=== PATIENT | female | born 1935 | race Two or more races ===

== ENCOUNTER 2024-07-04 16:14 | Emergency (ER) | payer OTHER ==
[~2024-07-04] VITALS: Ht 170.2 cm; Wt 74.8 kg
[~2024-07-04 16:14] MED LIST: ASPIR 8181 MG
[2024-07-04] MEDS ORDERED: FOSAMAX70 MG PO (16:47)
[2024-07-04] MEDS ORDERED: CANDESARTAN CIL32 MG PO (16:47)
[2024-07-04] MEDS ORDERED: SYNTHROID50 MCG PO (16:47)
[2024-07-04] MEDS ORDERED: NORVASC5 MG PO (16:47)
[2024-07-04] MEDS ORDERED: ECOTRIN81 MG (16:48)
[2024-07-04] MEDS ORDERED: BENZONATATE 100 MG CAPSULE PO ONE (17:30)
[2024-07-04] MEDS ORDERED: ACETAMINOPHEN 500 MG GEL..CAP PO ONE (17:30)
[2024-07-04 18:26] LABS: HEMATOCRIT 39.9 % (36.0-45.00); HEMOGLOBIN 13.5 g/dL (12.0-15.00); MEAN CELL VOLUME 99.8 fL (80.00-100.00); MEAN CORPUSCULAR HEMOGLOBIN 33.8 pg (27.00-32.0); MEAN CORPUSCULAR HGB CONC 33.9 g/dl (32.0-36.0); PLATELET COUNT 172 K/uL (150-450); RED BLOOD COUNT 3.99 M/uL (4.00-6.00); RED CELL DISTRIBUTION WIDTH 13.3 % (11.5-14.5)
== END 2024-07-04 20:22 | disposition home or self-care (01) ==
LOC: ER 16:16
PROVIDERS: General Practice
DX: R53.81 Other malaise (principal); J06.9 Acute upper respiratory infection, unspecified; Z20.822 Contact with and (suspected) exposure to COVID-19

== ENCOUNTER 2024-12-12 08:55 | Emergency (ER) | payer OTHER ==
[~2024-12-12] VITALS: Ht 170.2 cm; Wt 76.2 kg
[~2024-12-12 08:55] MED LIST changes: +CANDESARTAN CIL32 MG PO; +ECOTRIN81 MG; +FOSAMAX70 MG PO; +NORVASC5 MG PO; +SYNTHROID50 MCG PO
[2024-12-12] MEDS ORDERED: LIDOCAINE HCL 1% 10ML VIAL PERCUT ONE (10:15)
== END 2024-12-12 13:26 | disposition home or self-care (01) ==
LOC: ER 09:23
DX: S01.81XA Laceration without foreign body of other part of head, initial encounter (principal); W18.39XA Other fall on same level, initial encounter; Y93.89 Activity, other specified; Y92.89 Other specified places as the place of occurrence of the external cause; Y99.9 Unspecified external cause status; I10 Essential (primary) hypertension; E03.9 Hypothyroidism, unspecified

== ENCOUNTER 2024-12-19 14:27 | Emergency (ER) | payer OTHER ==
[~2024-12-19] VITALS: Ht 165.1 cm; Wt 74.8 kg
== END 2024-12-19 16:11 | disposition home or self-care (01) ==
LOC: ER 14:35
DX: Z48.02 Encounter for removal of sutures (principal)